=== PATIENT | female | born 1980 | race Caucasian/White ===

== ENCOUNTER 2017-02-01 17:10 | Emergency (ER) | payer SELFPAY ==
[~2017-02-01] VITALS: Ht 152.4 cm; Wt 73.2 kg
[~2017-02-01 17:10] MED LIST: CEFTIN250 M1 PO; MACROBID 1100 MG/CAP PO; MOTRIN 600600 MG/TAB PO; NO HOME MEDICATIONS; NORCO 325 MG-51 TAB PO; PERCOCET 325 MG1 TA2 PO; PHENERGAN 25 TA25 MG PO; PRENATAL1 TA1 PO; REGLAN 10MG10 MG/TAB PO; ZANTAC 7575 MG PO
[2017-02-01 17:20] VITALS: BP 117/68; TEMP 98
[2017-02-01 18:53] VITALS: PULSE 61
== END 2017-02-01 18:54 | disposition home or self-care (01) ==
LOC: COL.ER 17:10
DX: M77.9 Enthesopathy, unspecified (principal); J45.909 Unspecified asthma, uncomplicated; Z87.891 Personal history of nicotine dependence

== ENCOUNTER 2017-04-27 16:12 | Emergency (ER) | payer SELFPAY ==
[~2017-04-27] VITALS: Ht 152.4 cm; Wt 77.3 kg
[2017-04-27 16:14] VITALS: TEMP 97.2
[2017-04-27 17:56] LABS: COLLECTION METHOD CLEAN CATCH
[2017-04-27 18:02] LABS: PH 7 (5-8); SQUAMOUS EPITHELIAL 0-2 /hpf; URINE APPEARANCE Clear; URINE BACTERIA Rare /hpf; URINE BILIRUBIN Negative (NEGATIVE); URINE BLOOD Negative (NEGATIVE); URINE COLOR Colorless; URINE GLUCOSE Negative (NEGATIVE); URINE KETONE Negative (NEGATIVE); URINE LEUKOCYTE ESTERASE Negative (NEGATIVE); URINE NITRATE Negative (NEGATIVE); URINE PROTEIN(semi-quant) Negative (NEGATIVE); URINE RBC 0-2 /hpf; URINE UROBILINOGEN Negative (NEGATIVE)
[2017-04-27 18:24] LABS: BASO # 0.1 (0.0-0.2); BASO % 0.9 % (0.0-2.0); EOS # 0.1 (0.0-0.7); EOS % 1.3 % (0-4.0); GRAN # 4.3 (1.4-6.5); GRAN % 57.1 % (42.2-75.2); HEMATOCRIT 37.1 % (37.0-47.0); LYMPH # 2.4 (1.2-3.4); LYMPH % 32.2 % (20.0-51.0); MEAN CELL VOLUME 83 fl (80.0-100.0); MEAN CORPUSCULAR HEMOGLOBIN 26 pg (27.0-31.0); MEAN CORPUSCULAR HGB CONC 31 g/dl (33.0-37.0); MEAN PLATELET VOLUME 10.2 fl (7.4-10.4); MONO # 0.6 (0.1-0.6); MONO % 8.2 % (1.7-9.3); PLATELET COUNT 260 K/mm3 (130-400); RED BLOOD COUNT 4.47 M/mm3 (4.10-5.30)
[2017-04-27 18:26] LABS: HEMOGLOBIN 11.5 g/dl (12.5-16.0)
[2017-04-27 18:36] LABS: ALANINE AMINOTRANSFERASE 26 U/L (9-52); ALBUMIN 4.1 gm/dL (3.5-5.0); ALKALINE PHOSPHATASE 69 U/L (50-136); ANION GAP 7 mmol/L (7-16); AST,SGOT 25 U/L (15-37); BILIRUBIN,TOTAL 0.1 mg/dL (0.0-1.0); BLOOD UREA NITROGEN 14 mg/dL (7-17); C-REACTIVE PROTEIN < 0.5 mg/dL (0.0-0.9); CALCIUM 8.6 mg/dL (8.4-10.2); CARBON DIOXIDE 25 mmol/L (22-30); CHLORIDE 106 mmol/L (98-107); CREATININE, serum 0.83 mg/dL (0.52-1.25); GLUCOSE 95 mg/dL (74-106); POTASSIUM 3.8 mmol/L (3.4-5.0); SODIUM 138 mmol/L (137-145); TOTAL PROTEIN 7.4 gm/dL (6.4-8.2)
[2017-04-27 19:15] VITALS: BP 130/73; PULSE 64
== END 2017-04-27 19:46 | disposition home or self-care (01) ==
LOC: COL.ER 16:12
PROVIDERS: Physician Assistant Medical
DX: M54.5 Low back pain (principal); Z87.42 Personal history of other diseases of the female genital tract
CPT/HCPCS: J1885; J2360

== ENCOUNTER 2017-07-27 11:32 | Emergency (ER) | payer SELFPAY ==
[~2017-07-27] VITALS: Ht 152.4 cm; Wt 67.3 kg
[2017-07-27 11:55] LABS: COLLECTION METHOD CLEAN CATCH
[2017-07-27 12:22] LABS: SQUAMOUS EPITHELIAL 0-2 /hpf; URINE BACTERIA Rare /hpf
[2017-07-27 12:25] LABS: PH 7 (5-8); URINE APPEARANCE Clear; URINE COLOR Yellow; URINE PROTEIN(semi-quant) Negative (NEGATIVE)
[2017-07-27 12:26] LABS: URINE BILIRUBIN Negative (NEGATIVE); URINE BLOOD 1+ (NEGATIVE); URINE GLUCOSE Negative (NEGATIVE); URINE KETONE Negative (NEGATIVE); URINE LEUKOCYTE ESTERASE 3+ (NEGATIVE); URINE NITRATE Negative (NEGATIVE); URINE UROBILINOGEN Negative (NEGATIVE)
[2017-07-27 12:38] LABS: BASO % 0.4 % (0.0-2.0); EOS % 0.4 % (0-4.0); GRAN # 7.2 (1.4-6.5); GRAN % 85.8 % (42.2-75.2); HEMOGLOBIN 11.5 g/dl (12.5-16.0); LYMPH # 0.6 (1.2-3.4); LYMPH % 7.6 % (20.0-51.0); MEAN CELL VOLUME 85 fl (80.0-100.0); MEAN CORPUSCULAR HEMOGLOBIN 29 pg (27.0-31.0); MEAN CORPUSCULAR HGB CONC 33 g/dl (33.0-37.0); MEAN PLATELET VOLUME 10.1 fl (7.4-10.4); MONO # 0.5 (0.1-0.6); MONO % 5.6 % (1.7-9.3); PLATELET COUNT 206 K/mm3 (130-400); RED BLOOD COUNT 4.04 M/mm3 (4.10-5.30); REDCELL DISTRIBUTION WIDTH-CV 14.4 % (11.5-14.5)
[2017-07-27 12:48] LABS: HEMATOCRIT 34.5 % (37.0-47.0)
[2017-07-27 12:58] LABS: ALBUMIN 3.5 gm/dL (3.5-5.0); BILIRUBIN,TOTAL 0.5 mg/dL (0.0-1.0); C-REACTIVE PROTEIN 2.2 mg/dL (0.0-0.9); CALCIUM 8.7 mg/dL (8.4-10.2); CREATININE, serum 0.65 mg/dL (0.52-1.25); POTASSIUM 3.1 mmol/L (3.4-5.0); TOTAL PROTEIN 7.2 gm/dL (6.4-8.2)
[2017-07-27 13:12] VITALS: TEMP 99.9
[2017-07-27] MEDS ORDERED: CEFTIN500 MG PO (14:42)
[2017-07-27 15:18] VITALS: BP 105/62; PULSE 80
== END 2017-07-27 15:19 | disposition home or self-care (01) ==
LOC: COL.ER 11:32
PROVIDERS: Physician Assistant
DX: N12 Tubulo-interstitial nephritis, not specified as acute or chronic (principal)
CPT/HCPCS: J0696; J1885; J2405; J7030; Q9967

== ENCOUNTER 2019-04-08 16:49 | Emergency (ER) | payer OTHER ==
[~2019-04-08] VITALS: Ht 142.2 cm; Wt 71.4 kg
[~2019-04-08 16:49] MED LIST changes: +CEFTIN500 MG PO
[2019-04-08 17:00] VITALS: TEMP 97.3
[2019-04-08 17:20] LABS: COLLECTION METHOD CLEAN CATCH
[2019-04-08 17:34] LABS: MUCOUS Present /lpf; PH 5 (5-8); URINE APPEARANCE Clear; URINE BACTERIA Rare /hpf; URINE BILIRUBIN Negative (NEGATIVE); URINE BLOOD Negative (NEGATIVE); URINE COLOR Yellow; URINE GLUCOSE Negative (NEGATIVE); URINE KETONE Negative (NEGATIVE); URINE LEUKOCYTE ESTERASE Negative (NEGATIVE); URINE NITRATE Negative (NEGATIVE); URINE PROTEIN(semi-quant) Negative (NEGATIVE); URINE UROBILINOGEN Negative (NEGATIVE)
[2019-04-08 18:37] LABS: BASO # 0.1 (0.0-0.2); BASO % 0.3 % (0.0-2.0); EOS # 0.1 (0.0-0.7); EOS % 0.3 % (0-4.0); GRAN # 11.5 (1.4-6.5); GRAN % 79.5 % (42.2-75.2); HEMATOCRIT 38.6 % (37.0-47.0); HEMOGLOBIN 12.4 g/dl (12.5-16.0); LYMPH # 1.8 (1.2-3.4); LYMPH % 12.4 % (20.0-51.0); MEAN CELL VOLUME 93 fl (80.0-100.0); MEAN CORPUSCULAR HEMOGLOBIN 30 pg (27.0-31.0); MEAN CORPUSCULAR HGB CONC 32 g/dl (33.0-37.0); MEAN PLATELET VOLUME 10.4 fl (7.4-10.4); MONO % 7.1 % (1.7-9.3); PLATELET COUNT 219 K/mm3 (130-400); RED BLOOD COUNT 4.14 M/mm3 (4.10-5.30); REDCELL DISTRIBUTION WIDTH-CV 12.5 % (11.5-14.5)
[2019-04-08 18:51] LABS: BILIRUBIN,TOTAL 0.4 mg/dL (0.0-1.0); CALCIUM 8.4 mg/dL (8.4-10.2); CREATININE, serum 0.6 (0.52-1.25); POTASSIUM 3.9 mmol/L (3.4-5.0); TOTAL PROTEIN 7.6 gm/dL (6.4-8.2)
[2019-04-08 19:12] LABS: C-REACTIVE PROTEIN 13.4 mg/dL (0.0-0.9)
[2019-04-08] MEDS ORDERED: DOXYCYCLINE 10100 MG PO (19:38)
[2019-04-08] MEDS ORDERED: FLAGYL500 MG PO (19:38)
[2019-04-08] MEDS ORDERED: NORCO 325 MG-51 TAB PO (19:38)
[2019-04-08 21:04] VITALS: BP 108/73; PULSE 87
[2019-04-09] MEDS ORDERED: OMNICEF 300MG300 MG PO ×2 (18:14)
[2019-04-10] MEDS ORDERED: BACTRIM DS 8001 TAB PO (11:38)
== END 2019-04-08 21:04 | disposition home or self-care (01) ==
LOC: COL.ER 16:49
PROVIDERS: Emergency Medicine
DX: N39.0 Urinary tract infection, site not specified (principal); N70.11 Chronic salpingitis
CPT/HCPCS: A4216; J0696; J1885; J7030; Q9967